=== PATIENT | female | born 1990 | race American Indian/Alaskan Native ===

== ENCOUNTER 2018-06-16 08:03 | Day surgery (SDC) | payer OTHER ==
[2018-06-15 12:39] VITALS: BMI 24.5
[2018-06-16] MEDS ORDERED: Propofol 10 mg/ml Inj (20 ML) ONE (09:08)
[2018-06-16] MEDS ORDERED: Midazolam 2 MG/2 ML VIAL ONE (09:08)
[2018-06-16] MEDS ORDERED: Lactated Ringer's 1,000 ML IV ONE (09:46)
[2018-06-16 10:08] VITALS: O2SAT 100
[2018-06-16 10:54] VITALS: TEMP 97.6
[2018-06-16] MEDS ORDERED: Dexamethasone 4 mg/1 ml IVP PRN (11:48)
[2018-06-16] MEDS ORDERED: Lactated Ringer's 1,000 ML IV SCH (12:00)
[2018-06-16 13:34] VITALS: BP 103/63; PULSE 85; RESP 16
--- NOTE | 2018-06-16 16:53 | OP ---
PROCEDURE DATE: 06/16/2018 PREOPERATIVE DIAGNOSES: Abnormal uterine bleeding, endometrial polyp. POSTOPERATIVE DIAGNOSES: Abnormal uterine bleeding, endometrial polyp. PROCEDURE PERFORMED: Hysteroscopic myomectomy, polypectomy, dilation and curettage. OPERATIVE FINDINGS: Anteverted 8-10 week size uterus, polypoid type tissue noted within the endocervical canal 1 cm in addition to submucosal myoma left ostia, bilateral ostia visualized with . MyoSure device completely and carefully resected mass. Good hemostasis. SPECIMEN SENT TO PATHOLOGY: Endometrial curetting, submucosal myoma/endometrial polyp. TYPE OF ANESTHESIA: General LMA. ESTIMATED BLOOD LOSS: 5 mL. COMPLICATIONS: None. DESCRIPTION OF PROCEDURE: The patient was taken to the operating room, where she was given general anesthesia. Once it was found to be adequate, she was positioned on the operating table in dorsal lithotomy position with legs supported using stirrups. The patient was then prepped and draped in the usual sterile fashion. A time-out was performed confirming correct patient and correct procedure. Bimanual exam was performed with the above-mentioned findings. A Caruso retractor was placed in the anterior and posterior fornix of the vagina. The cervix was adequately visualized. A single-tooth tenaculum was placed in the anterior lip of the cervix. The uterus was then sounded to 8 cm. Following this, the cervix was sequentially dilated to allow for introduction of the hysteroscope under direct visualization using normal saline as the distention media. The above mentioned findings were noted. The MyoSure device was then inserted under direct visualization. The mass was carefully resected. The MyoSure device was then removed. Gentle curettage was done. Hysteroscope was then reintroduced. There was good hemostasis noted. All instruments were removed. There was good hemostasis at the tenaculum puncture site and operative site. At the end of the procedure, all needle, sponge and instrument counts were noted to be correct x2. The patient tolerated the procedure well and was transferred to the recovery room in stable condition. Salma Albarran MD
== END 2018-06-16 13:00 | disposition home or self-care (01) ==
LOC: C.SDS 08:03
PROVIDERS: ATTEND Obstetrics & Gynecology
DX: N93.9 Abnormal uterine and vaginal bleeding, unspecified (principal); N84.0 Polyp of corpus uteri
CPT/HCPCS: 58558; 88305; J2250; J2405; J2704; J3010; J7120